=== PATIENT | female | born 1955 | race Caucasian/White ===

== ENCOUNTER 2022-05-12 20:22 | Emergency (ER) | payer OTHER ==
[~2022-05-12] VITALS: Ht 170.2 cm; Wt 81.6 kg
--- NOTE | 2022-05-12 20:40 | NUR ---
KAY TO ER BED 15. INTOXICATED. NOT IN RESP DISTRESS. PT'S ROOM MATE CALLED PARAMEDICS FOR ALCOHOL INTOXICATION, LAST DRINK TODAY. PT WAS ALSO REPORTED BEING AGGRESSIVE TO HER ROOM MATE BY SWING AT THE ROOM MATE. PT ARRIVED ON A 2 POINT RESTRAINT. PT REMAINED TO BE ON RESTRAINT ON BED ASSISTED BY SECURITY. AWAITING MD FOR EVAL
--- NOTE | 2022-05-12 21:15 | NUR ---
GONZÁLEZ Metz MD AWARE
[2022-05-12] MEDS ORDERED: HALOPERIDOL LACTATE INJ 5 MG/ML VIAL ONE (21:51)
[2022-05-12 21:52] LABS: BASOPHILS # (AUTO) 0.1 K/uL (0.0-0.2); BASOPHILS % (AUTO) 0.7 % (0.0-2.0); EOSINOPHILS % (AUTO) 3.9 % (0.0-6.0); HEMATOCRIT 40 % (33-45); LYMPHOCYTES # (AUTO) 3.3 K/uL (0.8-4.8); LYMPHOCYTES % (AUTO) 31.1 % (20.0-44.0); MEAN CORPUSCULAR HGB CONC 32 g/dl (31.0-36.0); MEAN CORPUSCULAR VOLUME 85 fL (82-100); MONOCYTES # (AUTO) 0.7 K/uL (0.1-1.30); MONOCYTES % (AUTO) 6.3 % (2.0-12.0); NEUTROPHILS # (AUTO) 6.1 K/uL (1.8-8.9); PLATELET COUNT (AUTO) 153 K/uL (150-450); RED BLOOD CELL COUNT(AUTO) 4.73 MIL/uL (4.0-5.2); WHITE BLOOD COUNT (AUTO) 10.5 K/uL (4.3-11.0)
[2022-05-12 22:00] LABS: CALCIUM, SERUM 8.6 mg/dL (8.5-10.1); CREATININE 1.3 mg/dL (0.6-1.3); POTASSIUM 3.4 mmol/L (3.5-5.1)
[2022-05-12] MEDS ORDERED: HALOPERIDOL LACTATE INJ 5 MG/ML VIAL IM ONE (22:00)
[2022-05-12 22:08] LABS: ALBUMIN 3.3 g/dL (3.4-5.0); BILIRUBIN,DIRECT 0.1 mg/dL (0.0-0.2); BILIRUBIN,TOTAL 0.3 mg/dL (0.2-1.0)
[2022-05-12] MEDS ORDERED: IV NS 0.9% 1,000 ML IV ONE (23:00)
--- NOTE | 2022-05-12 23:11 | NUR ---
IV LINE ESTABLISHED , [id number]
--- NOTE | 2022-05-13 05:49 | NUR ---
PT DISCHARGED IN STABLE CONDITION. FOOD AND DRINK PROVIDED. PT AMBULATORY W/ STEADY GAIT.
--- NOTE | 2022-05-13 05:49 | NUR ---
IV removed. Catheter intact and site benign. Pressure and 4x4 applied to site. No bleeding noted.
[2022-05-13 05:55] VITALS: BP 121/64
== END 2022-05-13 05:55 | disposition home or self-care (01) ==
LOC: ER 20:27
DX: F10.129 Alcohol abuse with intoxication, unspecified (principal); Y90.8 Blood alcohol level of 240 mg/100 ml or more
CPT/HCPCS: 99283; 96372; 96360; 85025; 80048; 80076; 36415; 82962; 80320; J1630; J7030; G0480